=== PATIENT | male | born 1995 | race Caucasian/White ===

== ENCOUNTER 2024-04-29 11:02 | Emergency (ER) | payer OTHER, SELFPAY ==
[~2024-04-29] VITALS: Ht 180.3 cm; Wt 85.6 kg
[2024-04-29] MEDS: KETOROLAC 30 MG/ML 1ML VIAL IV ONE (13:12)
[2024-04-29] MEDS ORDERED: ISOVUE-370 76% 100ML VIAL As Ordered ONE (13:17)
[2024-04-29 13:24] LABS: BASO % 0.2 % (0.0-1.0); EOS # 0.1 10^3/uL (0.0-0.5); EOS % 0.7 % (0.0-3.0); HEMATOCRIT 37.5 % (42.0-52.0); HEMOGLOBIN 12.6 g/dl (13.5-17.5); LYMPH # 1.6 10^3/uL (1.5-5.0); MEAN CORPUSCULAR HEMOGLOBIN 31.3 pg (27.0-33.0); MEAN CORPUSCULAR HGB CONC 33.6 g/dl (32.0-36.5); MEAN CORPUSCULAR VOLUME 93.3 fl (80.0-96.0); MONO # 1.6 10^3/uL (0.0-0.8); MONO % 12.2 % (2.0-8.0); NEUTROPHILS # 9.3 10^3/uL (1.5-8.5); NEUTROPHILS % 73.5 % (36.0-66.0); PLATELET COUNT, AUTOMATED 254 10^3/uL (150-450); RED BLOOD COUNT 4.02 10^6/uL (4.30-6.10); WHITE BLOOD COUNT 12.7 10^3/uL (4.0-10.0)
[2024-04-29 13:30] LABS: ERYTHROCYTE SEDIMENTATION RATE 82 mm/hr (0-15)
[2024-04-29] MEDS: AMPICILLIN SOD/SULBACTAM SOD 3 GM in DEXTROSE 5% (D5W) MINI-BAG PLU 100 ML IV ONE (14:14)
[2024-04-29] MEDS ORDERED: IBUP1TAB6 PO (15:07)
[2024-04-29] MEDS: dexAMETHasone 20MG/5ML VIAL IV ONE (15:15)
[2024-04-29] MEDS ORDERED: HYDR-4571 PO (15:15)
[2024-04-29] MEDS ORDERED: AMOX875T2 PO (15:15)
[2024-04-29 15:24] VITALS: BP 116/73; TEMP 97.6; O2SAT 100
== END 2024-04-29 15:31 | disposition home or self-care (01) ==
LOC: M ED 11:02
DX: K04.7 Periapical abscess without sinus (principal); R68.84 Jaw pain; K02.9 Dental caries, unspecified; Z79.1 Long term (current) use of non-steroidal anti-inflammatories (NSAID); Z79.2 Long term (current) use of antibiotics; Z79.899 Other long term (current) drug therapy
CPT/HCPCS: 70491; 80047; 85025; 85652; 86140; 96374; 96375; 99284; J0295; J1100; J1885; Q9967